=== PATIENT | female | born 1975 | race Caucasian/White ===

== ENCOUNTER 2017-04-18 14:19 | Emergency (ER) | payer BC, OTHER ==
[~2017-04-18] VITALS: Ht 170.2 cm; Wt 77.0 kg
[~2017-04-18 14:19] MED LIST: CYCL-36 PO; IBUP-238 PO; LORTA5 PO; Z.0.NO CURRENT MEDS
[2017-04-18 14:29] VITALS: BP 139/71; PULSE 61; RESP 16; TEMP 98.9; O2SAT 99
[2017-04-18 14:47] LABS: BILIRUBIN, URINE NEG (NEG); BLOOD, URINE TRACE (NEG); GLUCOSE,URINE NEG (NEG); KETONE, URINE TRACE mg/dL (NEG); NITRITE,URINE POS (NEG); PH, URINE 5.5 (5.0-8.5); URINE LEUKOCYTE ESTERASE SMALL (NEG)
[2017-04-18 14:56] LABS: RBC, URINE 0-3 /hpf (0-3); SQUAMOUS EPITHELIAL CELL URINE 0-5 /hpf (0-5); URINE COLOR YELLOW (YELLW/STRAW); WBC, URINE 15-19 /hpf (0-5)
[2017-04-18] MEDS ORDERED: SODIUM CHLOR 0.9% 1000 ML INJ 1,000 ML IV ONE (15:08)
--- NOTE | 2017-04-18 15:14 | PD ---
HPI Chief Complaint: Flank/Kidney Pain Time Seen by Provider: 15:06 Travel History International Travel<30 days: No Contact w/Intl Traveler<30days: No Traveled to known affect area: No History of Present Illness HPI Patient presents with complaints of left flank pain. Onset approximately one and a half hours ago. No history of kidney stones. Denies colicky pain. Mild nausea without vomiting. Denies any chest pain or shortness of breath. Reports difficulty with urination. PFSH Past Medical History Medical History: Denies Significant Hx Diminished Hearing: No Tetanus Vaccination: Unknown ?: Unknown LMP: IRREGULAR Past Surgical History Section: Yes (1999 & 2003) Social History Alcohol Use: No Tobacco Use: No Substance Use: No Allergies-Medications (Allergen,Severity, Reaction): Coded Allergies: No Known Allergies (Verified Adverse Reaction, Unknown, 04/18/17) Reported Meds & Prescriptions Reported Meds & Active Scripts Active No Active Prescriptions or Reported Medications Review of Systems General / Constitutional: No: Fever Eyes: No: Visual changes HENT: No: Headaches Cardiovascular: No: Chest Pain or Discomfort Respiratory: No: Shortness of Breath Gastrointestinal: No: Abdominal Pain Genitourinary: Positive: Dysuria, Flank Pain Musculoskeletal: No: Pain Skin: No Rash Neurologic: No: Weakness Psychiatric: No: Depression Endocrine: No: Polydipsia Hematologic/Lymphatic: No: Easy Bruising Physical Exam Narrative GENERAL: Well-nourished, well-developed patient. SKIN: Focused skin assessment warm/dry. HEAD: Normocephalic. EYES: No scleral icterus. No injection or drainage. NECK: Supple, trachea midline. No JVD or lymphadenopathy. CARDIOVASCULAR: Regular rate and rhythm without murmurs, gallops, or rubs. RESPIRATORY: Breath sounds equal bilaterally. No accessory muscle use. GASTROINTESTINAL: Abdomen soft, non-tender, nondistended. Left flank pain little lower than the kidney that I would expect MUSCULOSKELETAL: No cyanosis, or edema. BACK: Nontender without obvious deformity. No CVA tenderness. Data Data Last Documented VS Vital Signs Date Time Temp Pulse Resp B/P (MAP) Pulse Ox O2 Delivery O2 Flow Rate FiO2 04/18/17 14:29 98.9 61 16 139/71 (93) 99 Orders Orders Urinalysis - C+S If Indicated (04/18/17 14:35) Ed Urine Pregnancytest Poc (04/18/17 14:35) Urine Culture (04/18/17 14:40) Complete Blood Count With Diff (04/18/17 15:08) Ct Abd/Pel W/O Iv Contrast (04/18/17 15:08) Ecg Monitoring (04/18/17 15:08) Iv Access Insert/Monitor (04/18/17 15:08) Ketorolac Inj (Toradol Inj) (04/18/17 15:15) Ondansetron Inj (Zofran Inj) (04/18/17 15:15) Sodium Chloride 0.9% Flush (Ns Flush) (04/18/17 15:15) Sodium Chlor 0.9% 1000 Ml Inj (Ns 1000 M (04/18/17 15:08) Morphine Inj (Morphine Inj) (04/18/17 15:15) Ceftriaxone Inj (Rocephin Inj) (04/18/17 15:15) Labs Laboratory Tests Test 04/18/17 14:40 04/18/17 15:20 Urine Collection Type CLEAN CATCH Urine Color YELLOW Urine Turbidity CLEAR Urine pH 5.5 Urine Specific Martin 1.016 Urine Protein NEG mg/dL Urine Glucose (UA) NEG mg/dL Urine Ketones TRACE mg/dL Urine Occult Blood TRACE Urine Nitrite POS Urine Bilirubin NEG Urine Leukocyte Esterase SMALL Urine RBC 0-3 /hpf Urine WBC 15-19 /hpf Urine Squamous Epithelial Cells 0-5 /hpf Microscopic Urinalysis Comment CULTURE INDICATED Urine Collection Time 14:40 White Blood Count 8.6 TH/MM3 Red Blood Count 4.35 MIL/MM3 Hemoglobin 12.9 GM/DL Hematocrit 40.0 % Mean Corpuscular Volume 91.9 FL Mean Corpuscular Hemoglobin 29.8 PG Mean Corpuscular Hemoglobin Concent 32.4 % Red Cell Distribution Width 12.2 % Platelet Count 214 TH/MM3 Mean Platelet Volume 9.0 FL Neutrophils (%) (Auto) 72.9 % Lymphocytes (%) (Auto) 18.9 % Monocytes (%) (Auto) 5.6 % Eosinophils (%) (Auto) 1.8 % Basophils (%) (Auto) 0.8 % Neutrophils # (Auto) 6.2 TH/MM3 Lymphocytes # (Auto) 1.6 TH/MM3 Monocytes # (Auto) 0.5 TH/MM3 Eosinophils # (Auto) 0.2 TH/MM3 Basophils # (Auto) 0.1 TH/MM3 CBC Comment DIFF FINAL Differential Comment MDM Medical Decision Making Medical Screen Exam Complete: Yes Emergency Medical Condition: Yes Differential Diagnosis UTI, pyelonephritis, urosepsis, nephrolithiasis Narrative Course Assessment and plan discussed with patient and at bedside. Urinalysis revealed UTI, patient given Rocephin IV. CT reveals a kidney stone measuring 5 x 3 mm. Pain controlled. Diagnosis Primary Impression: Nephrolithiasis Additional Impression: UTI (urinary tract infection) Qualified Codes: N39.0 - Urinary tract infection, site not specified; R31.9 - Hematuria, unspecified Patient Instructions: General Instructions Additional Instructions: Fluids fluids fluids. Medications as prescribed. Follow-up with PCP/urology. Return to emergency room with any onset of new symptoms. Med/Other Pt SpecificInfo: Prescription(s) given Scripts Oxycodone-Acetaminophen (Percocet) 7.5-325 mg Tab 1 TAB PO Q4H Y for PAIN, #20 TAB 0 Refills Prov: Jae Martinez MD 04/18/17 Tamsulosin (Flomax) 0.4 Mg Cap 0.4 MG PO HS for Manage Prostate Problems for 10 Days, #10 CAP 0 Refills Prov: Jae Martinez MD 04/18/17 Ciprofloxacin (Cipro) 500 Mg Tab 500 MG PO BID for Infection for 5 Days, #10 TAB 0 Refills Prov: Jae Martinez MD 04/18/17 Disposition: 01 DISCHARGE HOME Condition: Good Jae Martinez MD Apr 18, 2017 15:14
[2017-04-18] MEDS ORDERED: ONDANSETRON HCL 4 MG/2 ML VIAL IV PUSH ONE (15:15)
[2017-04-18] MEDS ORDERED: KETOROLAC TROMETHAMINE 30 MG/ML (IVP) VIAL IV PUSH ONE (15:15)
[2017-04-18] MEDS ORDERED: MORPHINE SULFATE 2 MG/ML INJ IV PUSH ONE (15:15)
[2017-04-18] MEDS ORDERED: SODIUM CHLORIDE 0.9% FLUSH 10 ML FLUSH IVF PRN (15:15)
[2017-04-18] MEDS ORDERED: cefTRIAXone INJ 1,000 MG in SODIUM CHLORIDE 0.9% INJ 100 ML IV ONE (15:15)
[2017-04-18 15:29] LABS: AUTOMATED NEUTROPHIL # 6.2 TH/MM3 (1.8-7.7); BASOPHIL # 0.1 TH/MM3 (0-0.2); BASOPHIL % 0.8 % (0.0-2.0); EOSINOPHIL # 0.2 TH/MM3 (0-0.4); EOSINOPHIL % 1.8 % (0.0-4.0); HEMOGLOBIN 12.9 GM/DL (11.6-15.3); LYMPH % 18.9 % (9.0-44.0); LYMPHOCYTE # 1.6 TH/MM3 (1.0-4.8); MEAN CELL VOLUME 91.9 FL (80.0-100.0); MEAN CORPUSCULAR HEMOGLOBIN 29.8 PG (27.0-34.0); MEAN CORPUSCULAR HGB CONC 32.4 % (32.0-36.0); MONO % 5.6 % (0.0-8.0); MONOCYTE # 0.5 TH/MM3 (0-0.9); NEUT % 72.9 % (16.0-70.0); PLATELET COUNT 214 TH/MM3 (150-450); RED BLOOD COUNT 4.35 MIL/MM3 (4.00-5.30); RED CELL DISTRIBUTION WIDTH 12.2 % (11.6-17.2); WHITE BLOOD COUNT 8.6 TH/MM3 (4.0-11.0)
--- NOTE | 2017-04-18 15:58 | RADRPT ---
EXAM DATE/TIME: 04/18/2017 15:33 [facility] COMPARISON: No previous studies available for comparison. INDICATIONS : Left lower abdominal pain. Nausea. ORAL CONTRAST: No oral contrast ingested. RADIATION DOSE: 14.83 CTDIvol (mGy) MEDICAL HISTORY : None SURGICAL HISTORY : C section ENCOUNTER: Initial ACUITY: 1 day PAIN SCALE: 8/10 LOCATION: Left abdominal near hip. TECHNIQUE: Volumetric scanning of the abdomen and pelvis was performed. Using automated exposure control and ad justment of the mA and/or kV according to patient size, radiation dose was kept as low as reasonably achievable to obtain optimal diagnostic quality images. DICOM format image data is available electro nically for review and comparison. FINDINGS: LOWER LUNGS: The visualized lower lungs are clear. LIVER: Homogeneous density without lesion. There is no dilation of the biliary tree. No calcified gallston es. SPLEEN: Normal size without lesion. PANCREAS: Within normal limits. KIDNEYS: 5 mm x 3 mm calculus at the left ureteral vesicle junction. Moderate severity diffuse left hydrourete r. Mild left hydronephrosis. Right kidney and ureter are within normal limits. No calculi identified in the kidneys. ADRENAL GLANDS: Within normal limits. VASCULAR: There is no aortic aneurysm. BOWEL/MESENTERY: No evidence of bowel dilatation. No free air or free fluid. Appendix within normal limits. ABDOMINAL WALL: Within normal limits. RETROPERITONEUM: There is no lymphadenopathy. BLADDER: No wall thickening or mass. REPRODUCTIVE: Within normal limits. INGUINAL: There is no lymphadenopathy or hernia. MUSCULOSKELETAL: Within normal limits for patient age. CONCLUSION: 5 x 3 mm left ureterovesical junction calculus. Moderate left hydroureter. Mild left hydronephrosis. Pawan Hamilton MD on April 18, 2017 at 15:52 Board Certified Radiologist. This report was verified electronically.
[2017-04-18] MEDS ORDERED: CIPR-9 PO (16:05)
[2017-04-18] MEDS ORDERED: TAMS5CAP PO (16:05)
[2017-04-18] MEDS ORDERED: PERC7.5T13 PO (16:05)
[2017-04-18 16:31] VITALS: BP 119/70
== END 2017-04-18 17:12 | disposition home or self-care (01) ==
LOC: PHED 14:19
DX: N20.0 Calculus of kidney (principal); N39.0 Urinary tract infection, site not specified; B96.89 Other specified bacterial agents as the cause of diseases classified elsewhere; R11.0 Nausea
CPT/HCPCS: 74176; 81001; 84703; 85025; 87086; 96374; 96375; 99285; J0696; J1885; J2270; J2405; J7030